=== PATIENT | female | born 1970 | race Caucasian/White ===

== ENCOUNTER 2017-07-04 02:03 | Emergency (ER) | payer MEDICAID ==
[~2017-07-04] VITALS: Ht 152.4 cm; Wt 129.7 kg
--- NOTE | 2017-07-04 04:53 | NUR ---
PT AMBULATORY TO ER BED 8. PT BIB SELF C/O "FLU LIKE SYMPTOMS" X 4 DAYS. PT PLACED ON [employer]. VSS/RESP EVEN UNLABORED/NAD NOTED/SKIN WARM AND DRY/DENIES N-V-D/AOX4. AWAITING MD GUAMAN.
--- NOTE | 2017-07-04 04:54 | NUR ---
AT BEDSIDE FOR EVAL.
--- NOTE | 2017-07-04 05:07 | NUR ---
RAPID FLU AND STREP SWABS DONE AND SENT TO THE LAB.
[2017-07-04] MEDS ORDERED: ACETAMINOPHEN ES 500 MG TABLET ONE (05:08)
[2017-07-04] MEDS: ACETAMINOPHEN 325 MG TABLET PO ONE (05:10)
--- NOTE | 2017-07-04 05:10 | NUR ---
EMT AT BEDSIDE TO FLUSH PT'S EARS BILAT PER MD ORDERS.
--- NOTE | 2017-07-04 05:10 | NUR ---
XRAY AT BEDSIDE.
--- NOTE | 2017-07-04 06:02 | NUR ---
Patient discharged to home in stable condition. Written and verbal after care instructions given. Patient verbalizes understanding of instruction. Patient ambulatory with a steady gait.
[2017-07-04 06:03] VITALS: BP 134/89
== END 2017-07-04 06:04 | disposition home or self-care (01) ==
LOC: ER 02:08
DX: B34.9 Viral infection, unspecified (principal); H61.23 Impacted cerumen, bilateral
CPT/HCPCS: 71045; 87070; 87804 ×2; 87880; 99285; A4606; Z7610; 86403-TC; 87400

== ENCOUNTER 2025-04-28 08:11 | Emergency (ER) | payer OTHER ==
[~2025-04-28] VITALS: Ht 152.4 cm; Wt 113.4 kg
[~2025-04-28 08:11] MED LIST: AMOX-430 PO; ONDA4TAB5 PO
[2025-04-28 09:28] VITALS: TEMP 97.9
[2025-04-28 11:51] LABS: PLATELET COUNT (AUTO) 272 K/uL (150-450); RED BLOOD CELL COUNT(AUTO) 4.52 MIL/uL (4.0-5.2); RED CELL DISTRIBUTION WIDTH 15.1 % (11.5-15.0); WHITE BLOOD COUNT (AUTO) 9.6 K/uL (4.3-11.0)
[2025-04-28 11:52] LABS: APPEARANCE,URINE CLEAR (CLEAR); BLOOD, URINE TRACE-INTA Ery/uL (NEGATIVE); LEUKOCYTE ESTERASE ,URINE NEGATIVE (NEGATIVE); NITRITE, URINE POSITIVE (NEGATIVE); UGLUCOSE 3+ mg/dL (NEGATIVE)
[2025-04-28 11:54] LABS: ADD URINE CULTURE YES
[2025-04-28 11:58] LABS: CALCIUM, SERUM 8.6 mg/dL (8.5-10.1); CREATININE 0.9 mg/dL (0.6-1.3); SODIUM SERUM 135.0 mmol/L (136-145); UREA NITROGEN, BLOOD 17.0 mg/dL (7-18)
[2025-04-28] MEDS ORDERED: CEPH-570 PO (12:04)
[2025-04-28] MEDS ORDERED: FLUC150T PO (12:21)
[2025-04-28 12:28] VITALS: BP 135/77; O2SAT 98
== END 2025-04-28 12:28 | disposition home or self-care (01) ==
LOC: ER 08:16
DX: N39.0 Urinary tract infection, site not specified (principal); E11.65 Type 2 diabetes mellitus with hyperglycemia; Z78.0 Asymptomatic menopausal state
CPT/HCPCS: 36415; 80048-TC; 81001; 85025-TC; 87086-TC; 87186-TC